=== PATIENT | female | born 1980 | race Caucasian/White ===

== ENCOUNTER 2017-02-05 19:35 | Emergency (ER) | payer OTHER ==
[~2017-02-05] VITALS: Ht 170.2 cm; Wt 70.0 kg
[2017-02-05 19:40] VITALS: BP 141/84; PULSE 98; RESP 18; TEMP 98.4; O2SAT 100
[2017-02-05] MEDS ORDERED: SODIUM CHLOR 0.9% 1000 ML INJ 1,000 ML IV SCH (23:50)
[2017-02-06] MEDS ORDERED: KETOROLAC TROMETHAMINE 30 MG/ML (IVP) VIAL IVP ONE
[2017-02-06] MEDS ORDERED: ONDANSETRON HCL 4 MG/2 ML VIAL IVP ONE
[2017-02-06] MEDS ORDERED: SODIUM CHLORIDE 0.9% FLUSH 10 ML FLUSH IV FLUSH PRN
[2017-02-06 00:09] LABS: BASOPHIL # 0.1 TH/MM3 (0-0.2); BASOPHIL % 0.7 % (0.0-2.0); EOSINOPHIL # 0.2 TH/MM3 (0-0.4); EOSINOPHIL % 2.6 % (0.0-4.0); HEMO FLAGS DIFF FINAL; LYMPH % 26.7 % (9.0-44.0); LYMPHOCYTE # 1.9 TH/MM3 (1.0-4.8); MEAN CELL VOLUME 91.3 FL (80.0-100.0); MEAN CORPUSCULAR HEMOGLOBIN 32.3 PG (27.0-34.0); MEAN CORPUSCULAR HGB CONC 35.3 % (32.0-36.0); MONO % 13.9 % (0.0-8.0); NEUT % 56.1 % (16.0-70.0); PLATELET COUNT 205 TH/MM3 (150-450); RED BLOOD COUNT 4.38 MIL/MM3 (4.00-5.30); RED CELL DISTRIBUTION WIDTH 12.3 % (11.6-17.2); WHITE BLOOD COUNT 7.1 TH/MM3 (4.0-11.0)
[2017-02-06 00:15] LABS: BACTERIA, URINE RARE /hpf; BLOOD, URINE NEG (NEG); GLUCOSE,URINE NEG (NEG); KETONE, URINE NEG (NEG); NITRITE,URINE NEG (NEG); PH, URINE 6.5 (5.0-8.5); SQUAMOUS EPITHELIAL CELL URINE 2 /hpf (0-5); URINE COLOR YELLOW (YELLW/STRAW)
[2017-02-06 00:16] LABS: COMMENT (UR) CULT NOT INDICATED; CULTURE IF INDICATED CULT NOT INDICATED
--- NOTE | 2017-02-06 00:18 | PD ---
HPI Chief Complaint: Abdominal Pain Time Seen by Provider: 23:42 Travel History International Travel<30 days: No Contact w/Intl Traveler<30days: No Traveled to known affect area: No History of Present Illness HPI Patient is a 36-year-old female sent having intermittent right lower quadrant abdominal pain for the past few days. Patient states that she's also been having some intense nausea and vomiting. States she had her tubes tied some time ago. States she has a history of drug addiction and is currently in drug court cannot have any narcotics. Denies any diarrhea. Denies any vaginal bleeding vaginal discharge. PFS Past Medical History Neurologic: Yes (SYNCOPE) Tetanus Vaccination: < 5 Years Influenza Vaccination: Yes ?: Not LMP: 01/16/17 Tubal Ligation: Yes Social History Alcohol Use: No Tobacco Use: No Substance Use: No Allergies-Medications (Allergen,Severity, Reaction): Coded Allergies: Contrast Media (Verified Adverse Reaction, Severe, 02/05/17) Iodine (Verified Adverse Reaction, Severe, Hives, 02/05/17) Reported Meds & Prescriptions Reported Meds & Active Scripts Active Flagyl (Metronidazole) 500 Mg Tab 500 Mg PO BID 7 Days Review of Systems Except as stated in HPI: all other systems reviewed are Neg Physical Exam Narrative GENERAL: WD/WN appears in mild discomfort. SKIN: Warm and dry. HEAD: Atraumatic. Normocephalic. EYES: Pupils equal and round. No scleral icterus. No injection or drainage. ENT: No nasal bleeding or discharge. Mucous membranes pink and moist. NECK: Trachea midline. No JVD. CARDIOVASCULAR: Regular rate and rhythm. RESPIRATORY: No accessory muscle use. Clear to auscultation. Breath sounds equal bilaterally. GASTROINTESTINAL: Abdomen soft, minimally tender in the right lower quadrant. Psoas sign weakly positive, obturator sign negative. No rebound tenderness. GENITOURINARY: No CMT, no BMT, no adenexal mass felt. No adenexal tenderness. No bleeding, scant discharge. MUSCULOSKELETAL: Extremities without clubbing, cyanosis, or edema. No obvious deformities. NEUROLOGICAL: Awake and alert. No obvious cranial nerve deficits. Motor grossly within normal limits. Five out of 5 muscle strength in the arms and legs. Normal speech. PSYCHIATRIC: Appropriate mood and affect; insight and judgment normal. Data Data Last Documented VS Vital Signs Date Time Temp Pulse Resp B/P Pulse Ox O2 Delivery O2 Flow Rate FiO2 7/6/17 01:04 99 02/05/17 19:40 98.4 98 18 141/84 Room Air Orders Urinalysis - C+S If Indicated (02/05/17 23:36) Ed Urine Pregnancytest Poc (02/05/17 23:36) Complete Blood Count With Diff (02/05/17 23:50) Comprehensive Metabolic Panel (02/05/17 23:50) Iv Access Insert/Monitor (02/05/17 23:50) Ecg Monitoring (02/05/17 23:50) Oximetry (02/05/17 23:50) Ondansetron Inj (Zofran Inj) (02/06/17 00:00) Sodium Chlor 0.9% 1000 Ml Inj (Ns 1000 M (02/05/17 23:50) Sodium Chloride 0.9% Flush (Ns Flush) (02/06/17 00:00) Ketorolac Inj (Toradol Inj) (02/06/17 00:00) Ct Abd/Pel W/O Iv Contrast (02/05/17 ) Us Pelvis Comp W Dop Transvag (02/06/17 ) Wet Prep Profile (02/06/17 00:18) Gc And Chlamydia Pcr (02/06/17 00:18) Labs Laboratory Tests Test 02/05/17 02/05/17 02/06/17 23:50 23:59 02:55 Urine Color YELLOW Urine Turbidity CLEAR Urine pH 6.5 Urine Specific [place] 1.017 Urine Protein NEG mg/dL Urine Glucose (UA) NEG mg/dL Urine Ketones NEG mg/dL Urine Occult Blood NEG Urine Nitrite NEG Urine Bilirubin NEG Urine Urobilinogen LESS THAN 2.0 MG/DL Urine Leukocyte Esterase SMALL Urine RBC 1 /hpf Urine WBC 1 /hpf Urine Squamous Epithelial 2 /hpf Cells Urine Amorphous Sediment RARE Urine Bacteria RARE /hpf Microscopic Urinalysis Comment CULT NOT INDICATED White Blood Count 7.1 TH/MM3 Red Blood Count 4.38 MIL/MM3 Hemoglobin 14.1 GM/DL Hematocrit 40.0 % Mean Corpuscular Volume 91.3 FL Mean Corpuscular Hemoglobin 32.3 PG Mean Corpuscular Hemoglobin 35.3 % Concent Red Cell Distribution Width 12.3 % Platelet Count 205 TH/MM3 Mean Platelet Volume 10.0 FL Neutrophils (%) (Auto) 56.1 % Lymphocytes (%) (Auto) 26.7 % Monocytes (%) (Auto) 13.9 % Eosinophils (%) (Auto) 2.6 % Basophils (%) (Auto) 0.7 % Neutrophils # (Auto) 4.0 TH/MM3 Lymphocytes # (Auto) 1.9 TH/MM3 Monocytes # (Auto) 1.0 TH/MM3 Eosinophils # (Auto) 0.2 TH/MM3 Basophils # (Auto) 0.1 TH/MM3 CBC Comment DIFF FINAL Differential Comment Sodium Level 139 MEQ/L Potassium Level 3.8 MEQ/L Chloride Level 106 MEQ/L Carbon Dioxide Level 25.3 MEQ/L Anion Gap 8 MEQ/L Blood Urea Nitrogen 11 MG/DL Creatinine 0.71 MG/DL Estimat Glomerular Filtration 94 ML/MIN Rate Random Glucose 101 MG/DL Calcium Level 9.2 MG/DL Total Bilirubin 0.4 MG/DL Aspartate Amino Transf 38 U/L (AST/SGOT) Alanine Aminotransferase 87 U/L (ALT/SGPT) Alkaline Phosphatase 58 U/L Total Protein 7.2 GM/DL Albumin 3.9 GM/DL Clue Cells (Wet Prep) PRESENT Vaginal Trichomonas (Wet Prep) NONE SEEN Vaginal Yeast (Wet Prep) NONE SEEN Chlamydia trachomatis DNA NOT DETECTED (PCR) Neisseria gonorrhoeae DNA NOT DETECTED (PCR) MDM Medical Decision Making Medical Screen Exam Complete: Yes Emergency Medical Condition: Yes Differential Diagnosis Appendicitis, torsion, STD, BV, CV, . Narrative Course Patient roomed in ED, given toradol and feeling better. Preg test negative, CT negative for acute pathology does show a right ovarian mass. Pelvic US shows no evidence of torsion: Last 24 hours Impressions Abdomen/Pelvis/Transvag US 02/06/17 0000 Signed Impressions: Service Date/Time: February 02:14 - CONCLUSION: 1. Hypoechoic structure in the right ovary measuring 2.3 cm. Followup study in 4 weeks recommended for stability. 2. Pelvic free fluid. Laci Decker MD Abdomen/Pelvis CT 02/05/17 0000 Signed Impressions: Service Date/Time: February 00:47 - CONCLUSION: 1. Soft tissue density in the right adnexa measuring 3.5 cm could be related to ovary versus mass. Pelvic sonogram recommended. 2. Small calcified gallstone. 3. Normal appendix. Laci Decker MD Discussed the findings above with the patient and interim follow up needed. Her pain has returned but she is sleeping comfortably. I offered additional pain medications and she declined. Given her sleeping and comfortable appearance on re-visit i highly doubt emergent pathology. DIscussed need for follow up wit PCP or [facility] and return to ED criteria. Diagnosis Primary Impression: Abdominal pain Additional Impressions: Ovarian mass, right BV (bacterial vaginosis) Referrals: [facility] Departure Forms: Tests/Procedures, Work Release Enter return to work date: Feb 07, 2017 Additional Instructions: Follow-up with regular physician or the [facility]. Med/Other Pt SpecificInfo: Prescription(s) given Scripts Metronidazole (Flagyl)500 Mg Vra475 Mg PO BID 7 Days Ref 0 Prov:Sujit Gallegos MD 02/06/17 Disposition: 01 DISCHARGE HOME Condition: Stable Sujit Gallegos MD Feb 06, 2017 00:18
[2017-02-06 00:33] LABS: ANION GAP 8 MEQ/L (5-15); AST (GOT) 38 U/L (15-37); BICARBONATE 25.3 MEQ/L (21.0-32.0); BLOOD UREA NITROGEN 11 MG/DL (7-18); CHLORIDE 106 MEQ/L (98-107); GLOMERULAR FILTRATION RATE 94 ML/MIN (>89); POTASSIUM 3.8 MEQ/L (3.5-5.1); SODIUM (NA) 139 MEQ/L (136-145)
[2017-02-06 00:34] LABS: ALT (GPT) 87 U/L (10-53)
[2017-02-06 00:36] LABS: ALKALINE PHOSPHATASE 58 U/L (45-117); TOTAL BILIRUBIN ADULT 0.4 MG/DL (0.2-1.0)
[2017-02-06 01:04] VITALS: O2SAT 99
--- NOTE | 2017-02-06 01:10 | RADRPT ---
EXAM DATE/TIME: 02/06/2017 00:47 [facility] COMPARISON: No previous studies available for comparison. INDICATIONS : Right lower qaudrant pain. ORAL CONTRAST: No oral contrast ingested. RADIATION DOSE: 9.96 CTDIvol (mGy) MEDICAL HISTORY : None SURGICAL HISTORY : Tubal ligation. ENCOUNTER: Initial ACUITY: 1 day PAIN SCALE: 10/10 LOCATION: Right lower quadrant TECHNIQUE: Volumetric scanning of the abdomen and pelvis was performed. Using automated exposure control and ad justment of the mA and/or kV according to patient size, radiation dose was kept as low as reasonably achievable to obtain optimal diagnostic quality images. DICOM format image data is available electro nically for review and comparison. FINDINGS: LOWER LUNGS: The visualized lower lungs are clear. LIVER: Homogeneous density without lesion. There is no dilation of the biliary tree. Gallbladder is contrac ольга and contains a single small calcified gallstone. SPLEEN: Normal size without lesion. PANCREAS: Within normal limits. KIDNEYS: Normal in size and shape. There is no mass, stone, or hydronephrosis. ADRENAL GLANDS: Within normal limits. VASCULAR: There is no aortic aneurysm. BOWEL/MESENTERY: The stomach, small bowel, and colon demonstrate no acute abnormality. There is no free intraperitone al air or fluid. Normal appendix. ABDOMINAL WALL: Within normal limits. RETROPERITONEUM: There is no lymphadenopathy. BLADDER: No wall thickening or mass. REPRODUCTIVE: Soft tissue density in the right adnexa measures 3.5 cm. INGUINAL: There is no lymphadenopathy or hernia. MUSCULOSKELETAL: Within normal limits for patient age. CONCLUSION: 1. Soft tissue density in the right adnexa measuring 3.5 cm could be related to ovary versus mass. Pe lvic sonogram recommended. 2. Small calcified gallstone. 3. Normal appendix. Laci Decker MD on February 06, 2017 at 1:05 Board Certified Radiologist. This report was verified electronically.
--- NOTE | 2017-02-06 03:24 | RADRPT ---
EXAM DATE/TIME: 02/06/2017 02:14 [facility] COMPARISON: No previous studies available for comparison. INDICATIONS : Pelvic pain. MEDICAL HISTORY : Syncope. SURGICAL HISTORY : Tubal ligation. ENCOUNTER: Initial ACUITY: 1 day PAIN SCORE: 8/10 LOCATION: Bilateral pelvis MEASUREMENTS: UTERUS: 7.8 x 4.8 x 4.3 cm ENDOMETRIAL STRIPE: 10 mm RIGHT OVARY: 4.3 x 3.3 x 2.8 cm LEFT OVARY: 3.0 x 2.4 x 2.2 cm FINDINGS: UTERUS: The myometrium has homogeneous echotexture without mass. RIGHT OVARY: Hypoechoic structure seen in the right ovary measuring 2.1 x 2.3 x 1.8 cm. Minimal flow. Normal flow. LEFT OVARY: Ovary contains no mass or significant cystic lesion. Normal flow. MISCELLANEOUS: There is free fluid. CONCLUSION: 1. Hypoechoic structure in the right ovary measuring 2.3 cm. Followup study in 4 weeks recommended fo r stability. 2. Pelvic free fluid. Laci Decker MD on February 06, 2017 at 3:18 Board Certified Radiologist. This report was verified electronically.
[2017-02-06] MEDS ORDERED: METR-1 PO (04:18)
[2017-02-06 05:36] LABS: CHLAMYDIA PCR NOT DETECTED (NOT DETECT); NEISSERIA PCR NOT DETECTED (NOT DETECT)
== END 2017-02-06 05:15 | disposition home or self-care (01) ==
LOC: NEPE 19:35
DX: R10.31 Right lower quadrant pain (principal); N83.8 Other noninflammatory disorders of ovary, fallopian tube and broad ligament; N76.0 Acute vaginitis; R11.2 Nausea with vomiting, unspecified; Z86.69 Personal history of other diseases of the nervous system and sense organs
CPT/HCPCS: 74176; 76830; 76856; 80053; 81001; 84703; 85025; 87210; 87491; 87591; 93975; 96374; 96375; 99285; J1885; J2405; J7030

== ENCOUNTER 2017-02-22 10:04 | Emergency (ER) | payer OTHER ==
[~2017-02-22] VITALS: Ht 170.2 cm; Wt 72.0 kg
[~2017-02-22 10:04] MED LIST: METR-1 PO
[2017-02-22 10:11] VITALS: BP 118/64; PULSE 93; RESP 16; TEMP 98.1; O2SAT 99
[2017-02-22] MEDS ORDERED: KETOROLAC TROMETHAMINE 60 MG/2 ML (IM) VIAL IM ONE (10:45)
--- NOTE | 2017-02-22 10:49 | PD ---
HPI Chief Complaint: Musculoskeletal Complaint Time Seen by Provider: 10:38 Travel History International Travel<30 days: No Contact w/Intl Traveler<30days: No Traveled to known affect area: No History of Present Illness HPI Patient is a 36-year-old female who comes in complaining of left shoulder pain and a cough. She says she has been coughing for the past 2 weeks. She was seen in urgent care and was given a prescription for amoxicillin as well as prednisone. She says she just finished the medications yesterday, but she is still coughing. She denies fever or chills. She says she has had the left shoulder pain for the past 2 days, she says she woke up with the pain. She works making pizzas. She denies any direct injury to her shoulder. She says the pain comes on when she tries to raise her arm above her head or move the arm too much. PFSH Past Medical History Diminished Hearing: No Neurologic: Yes (SYNCOPE) Tetanus Vaccination: Unknown ?: Not LMP: 02/15/17 Tubal Ligation: Yes Social History Alcohol Use: No Tobacco Use: No Substance Use: No Allergies-Medications (Allergen,Severity, Reaction): Coded Allergies: Contrast Media (Verified Adverse Reaction, Severe, 02/22/17) Iodine (Verified Adverse Reaction, Severe, Hives, 02/22/17) Reported Meds & Prescriptions Reported Meds & Active Scripts Active No Active Prescriptions or Reported Medications Review of Systems General / Constitutional: No: Fever, Chills HENT: No: Headaches, Lightheadedness Cardiovascular: No: Chest Pain or Discomfort Respiratory: Positive: Cough, No: Shortness of Breath Gastrointestinal: No: Nausea, Vomiting Musculoskeletal: Positive: Pain, No: Edema Skin: No Rash, No Change in Pigmentation Neurologic: No: Weakness, Sensory Disturbance Physical Exam Narrative GENERAL: Awake and alert, in no acute distress. SKIN: Focused skin assessment warm/dry. No rashes or signs of infection. HEAD: Atraumatic. Normocephalic. EYES: Pupils equal and round. No scleral icterus. ENT: Mucous membranes pink and moist. CARDIOVASCULAR: Regular rate and rhythm. No murmur appreciated. RESPIRATORY: No accessory muscle use. Clear to auscultation. Breath sounds equal bilaterally. MUSCULOSKELETAL: No obvious deformities. No clubbing. No cyanosis. No edema. Tender to palpation at the biceps insertion on the humerus. Pain with abduction of the left arm. No joint erythema or warmth. No bony tenderness. Radial pulse intact. NEUROLOGICAL: Awake and alert. No obvious cranial nerve deficits. Motor grossly within normal limits. Normal speech. Data Data Last Documented VS Vital Signs Date Time Temp Pulse Resp B/P Pulse Ox O2 Delivery O2 Flow Rate FiO2 02/22/17 10:11 98.1 93 16 118/64 99 Orders Ketorolac Inj (Toradol Inj) (02/22/17 10:45) Chest, Pa & Lat (02/22/17 ) MDM Medical Decision Making Medical Screen Exam Complete: Yes Emergency Medical Condition: Yes Medical Record Reviewed: Yes Differential Diagnosis Shoulder sprain versus tendinitis versus bronchitis versus URI Narrative Course Patient is a 36-year-old female who comes in complaining of left shoulder pain as well as a cough. Exam shows pain with movement of the left arm. Patient given Toradol for pain. Chest x-ray obtained, shows no acute abnormalities. Patient asking for a note for work. Advised to take ibuprofen as needed for pain. Advised follow-up with her doctor. Advised to return to the ED as needed for any worsening symptoms. Diagnosis Primary Impression: Muscle strain, upper arm Qualified Code: S46.912A - Muscle strain, upper arm, left, initial encounter Patient Instructions: General Instructions, Musculoskeletal Pain (ED) Additional Instructions: Follow up with your doctor. Take Ibuprofen as needed for pain. Return to the ED as needed for any worsening symptoms. Scripts No Active Prescriptions or Reported Meds Disposition: 01 DISCHARGE HOME Condition: Stable Vanessa Morse MD Feb 22, 2017 10:49
--- NOTE | 2017-02-22 11:05 | RADRPT ---
EXAM DATE/TIME: 02/22/2017 10:51 [facility] COMPARISON: CT ABDOMEN & PELVIS W/O CONTRAST, February 06, 2017, 0:47. INDICATIONS : Cough, mid to left upper chest pain, left shoulder area and left upper arm pain MEDICAL HISTORY : None. SURGICAL HISTORY : None. ENCOUNTER: Initial ACUITY: 2 weeks PAIN SCORE: 5/10 LOCATION: Left upper chest FINDINGS: PA and lateral views of the chest demonstrate the lungs to be symmetrically aerated without evidence of mass, infiltrate or effusion. The cardiomediastinal contours are unremarkable. Osseous structure s are intact. CONCLUSION: 1. No acute cardiopulmonary disease. Bubba Ewing MD on February 22, 2017 at 11:03 Board Certified Radiologist. This report was verified electronically.
== END 2017-02-22 11:15 | disposition home or self-care (01) ==
LOC: PHED 10:04
DX: S46.912A Strain of unspecified muscle, fascia and tendon at shoulder and upper arm level, left arm, initial encounter (principal); R05 Cough; R07.89 Other chest pain
CPT/HCPCS: 71020; 96372; 99284; J1885

== ENCOUNTER 2017-04-03 19:23 | Emergency (ER) | payer OTHER ==
[2017-04-03 19:26] VITALS: BP 128/72; PULSE 85; RESP 16; TEMP 98.7
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
[2017-04-03] MEDS ORDERED: IBUP-232 PO (20:34)
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
== END 2017-04-03 21:35 | disposition home or self-care (01) ==
LOC: PHEFT 19:23
DX: S16.1XXA Strain of muscle, fascia and tendon at neck level, initial encounter (principal); V89.2XXA Person injured in unspecified motor-vehicle accident, traffic, initial encounter
CPT/HCPCS: 72125; 99284

== ENCOUNTER 2017-05-29 22:43 | Emergency (ER) | payer OTHER ==
[~2017-05-29] VITALS: Ht 170.2 cm; Wt 68.0 kg
[~2017-05-29 22:43] MED LIST changes: +IBUP-232 PO; -METR-1 PO
[2017-05-29 22:44] VITALS: BP 138/84; PULSE 91; RESP 16; TEMP 98.1; O2SAT 100
[2017-05-29] MEDS ORDERED: SODIUM CHLOR 0.9% 1000 ML INJ 1,000 ML IV SCH ×2 (23:32)
[2017-05-29] MEDS ORDERED: SODIUM CHLORIDE 0.9% FLUSH 10 ML FLUSH IV FLUSH PRN ×2 (23:45)
[2017-05-29] MEDS ORDERED: ONDANSETRON HCL 4 MG/2 ML VIAL IVP ONE ×2 (23:45)
[2017-05-30 00:11] LABS: BASOPHIL % 0.3 % (0.0-2.0); EOSINOPHIL # 0.2 TH/MM3 (0-0.4); EOSINOPHIL % 1.8 % (0.0-4.0); HEMATOCRIT 42.5 % (35.0-46.0); HEMOGLOBIN 14.9 GM/DL (11.6-15.3); LYMPH % 22.5 % (9.0-44.0); MEAN CELL VOLUME 92.3 FL (80.0-100.0); MEAN CORPUSCULAR HEMOGLOBIN 32.4 PG (27.0-34.0); MEAN CORPUSCULAR HGB CONC 35.1 % (32.0-36.0); MEAN PLATELET VOLUME 9.9 FL (7.0-11.0); MONO % 6.7 % (0.0-8.0); MONOCYTE # 0.9 TH/MM3 (0-0.9); NEUT % 68.7 % (16.0-70.0); PLATELET COUNT 244 TH/MM3 (150-450); RED CELL DISTRIBUTION WIDTH 12.3 % (11.6-17.2); WHITE BLOOD COUNT 13.2 TH/MM3 (4.0-11.0)
[2017-05-30 00:27] LABS: BACTERIA, URINE RARE /hpf; BILIRUBIN, URINE NEG (NEG); BLOOD, URINE NEG (NEG); GLUCOSE,URINE NEG (NEG); KETONE, URINE NEG (NEG); MUCUS URINE FEW /lpf (OCC); NITRITE,URINE NEG (NEG); SQUAMOUS EPITHELIAL CELL URINE 13 /hpf (0-5); URINE COLOR YELLOW (YELLW/STRAW); URINE LEUKOCYTE ESTERASE MOD (NEG)
[2017-05-30 00:39] LABS: ALBUMIN 4.1 GM/DL (3.4-5.0); AST (GOT) 15 U/L (15-37); BICARBONATE 26.5 MEQ/L (21.0-32.0); BLOOD UREA NITROGEN 13 MG/DL (7-18); CALCIUM 9.7 MG/DL (8.5-10.1); CHLORIDE 105 MEQ/L (98-107); GLOMERULAR FILTRATION RATE 96 ML/MIN (>89); GLUCOSE,RANDOM 87 MG/DL (74-106); LIPASE 117 U/L (73-393); SODIUM (NA) 138 MEQ/L (136-145)
[2017-05-30 00:42] LABS: ALKALINE PHOSPHATASE 58 U/L (45-117); ALT (GPT) 49 U/L (10-53); TOTAL BILIRUBIN ADULT 0.3 MG/DL (0.2-1.0); TOTAL PROTEIN 7.5 GM/DL (6.4-8.2)
--- NOTE | 2017-05-30 01:31 | RADRPT ---
EXAM DATE/TIME: 05/30/2017 01:14 [facility] COMPARISON: CT ABDOMEN & PELVIS W/O CONTRAST, February 06, 2017, 0:47. INDICATIONS : Abdominal pain with nausea. ORAL CONTRAST: No oral contrast ingested. RADIATION DOSE: 6.77 CTDIvol (mGy) MEDICAL HISTORY : None SURGICAL HISTORY : Tubal ligation. ENCOUNTER: Initial ACUITY: 1 day PAIN SCALE: 7/10 LOCATION: abdomen TECHNIQUE: Volumetric scanning of the abdomen and pelvis was performed. Using automated exposure control and ad justment of the mA and/or kV according to patient size, radiation dose was kept as low as reasonably achievable to obtain optimal diagnostic quality images. DICOM format image data is available electro nically for review and comparison. FINDINGS: LOWER LUNGS: The visualized lower lungs are clear. LIVER: Homogeneous density without lesion. There is no dilation of the biliary tree. Subcentimeter gallston e again noted. SPLEEN: Normal size without lesion. PANCREAS: Within normal limits. KIDNEYS: Normal in size and shape. There is no mass, stone, or hydronephrosis. ADRENAL GLANDS: Within normal limits. VASCULAR: There is no aortic aneurysm. BOWEL/MESENTERY: The stomach, small bowel, and colon demonstrate no acute abnormality. There is no free intraperitone al air or fluid. Normal appendix. ABDOMINAL WALL: Within normal limits. RETROPERITONEUM: There is no lymphadenopathy. BLADDER: No wall thickening or mass. REPRODUCTIVE: Within normal limits. INGUINAL: There is no lymphadenopathy or hernia. MUSCULOSKELETAL: No acute bony abnormality demonstrated. Partial sacralization again noted of L5 on the left. CONCLUSION: No acute abnormality demonstrated. Benji Ricardo MD on May 30, 2017 at 1:26 Board Certified Radiologist. This report was verified electronically.
[2017-05-30] MEDS ORDERED: ZOFR4TAB3 SL ×2 (01:38)
[2017-05-30] MEDS ORDERED: ZANT150T2 PO ×2 (01:38)
--- NOTE | 2017-05-30 01:38 | PD ---
HPI Chief Complaint: Abdominal Pain Time Seen by Provider: 23:27 Travel History International Travel<30 days: No Contact w/Intl Traveler<30days: No Traveled to known affect area: No History of Present Illness HPI This is a 36-year-old female who presents to the emergency department with 2 weeks of abdominal discomfort described as cramping, worse in the right abdomen , associated with subjective fevers and chills, nausea, decreased appetite and mucoid stool. She's never had symptoms like this before. She has a history of a bilateral tubal ligation but otherwise denies any abdominal surgeries. She has no known family history of inflammatory bowel disease. She does have a history of opiate dependence but has been clean for 10 months and she says she' s never used IV drugs. She denies any vaginal discharge and said she is been with one partner in the past 6 months. PFSH Past Medical History Diminished Hearing: No Neurologic: Yes (SYNCOPE) Immunizations Current: Yes Tetanus Vaccination: < 5 Years Influenza Vaccination: Yes ?: Not Tubal Ligation: Yes Social History Alcohol Use: No Tobacco Use: Yes (2 CIGS A DAY) Substance Use: Yes (RECOVERY) Allergies-Medications (Allergen,Severity, Reaction): Coded Allergies: diatrizoate meglumine (Unverified Adverse Reaction, Severe, 05/29/17) gadobenic acid (Unverified Adverse Reaction, Severe, 05/29/17) gadodiamide (Unverified Adverse Reaction, Severe, 05/29/17) gadoteridol (Unverified Adverse Reaction, Severe, 05/29/17) iodine (Unverified Adverse Reaction, Severe, Hives, 05/29/17) iodixanol (Unverified Adverse Reaction, Severe, 05/29/17) iohexol (Unverified Adverse Reaction, Severe, 05/29/17) potassium iodide (Unverified Adverse Reaction, Severe, Hives, 05/29/17) povidone-iodine (Unverified Adverse Reaction, Severe, Hives, 05/29/17) sodium iodide (Unverified Adverse Reaction, Severe, Hives, 05/29/17) sodium iodide (Unverified Adverse Reaction, Severe, Hives, 05/29/17) Reported Meds & Prescriptions Reported Meds & Active Scripts Active No Active Prescriptions or Reported Medications Review of Systems Except as stated in HPI: all other systems reviewed are Neg Physical Exam Narrative GENERAL:Well appearing, no acute distress SKIN: Focused skin assessment warm and dry. HEAD: Atraumatic. Normocephalic. EYES: Pupils equal and round. No injection or drainage. ENT: Moist mucous membranes NECK: Trachea midline. CARDIOVASCULAR: Regular rate and rhythm. No murmur appreciated. RESPIRATORY: Clear to auscultation. Breath sounds equal bilaterally. GASTROINTESTINAL: Abdomen soft, tender to palpation in the epigastrium and right lower quadrant with no rebound or guarding. MUSCULOSKELETAL: No obvious deformities. NEUROLOGICAL: Awake and alert. No obvious cranial nerve deficits. Moving all extremities. PSYCHIATRIC: Appropriate mood and affect; insight and judgment normal. Data Data Last Documented VS Vital Signs Date Time Temp Pulse Resp B/P (MAP) Pulse Ox O2 Delivery O2 Flow Rate FiO2 05/29/17 22:44 98.1 91 16 138/84 (102) 100 Room Air Orders Orders Complete Blood Count With Diff (05/29/17 23:32) Comprehensive Metabolic Panel (05/29/17 23:32) Lipase (05/29/17 23:32) Urinalysis - C+S If Indicated (05/29/17 23:32) Iv Access Insert/Monitor (05/29/17 23:32) Ecg Monitoring (05/29/17 23:32) Oximetry (05/29/17 23:32) Ondansetron Inj (Zofran Inj) (05/29/17 23:45) Sodium Chlor 0.9% 1000 Ml Inj (Ns 1000 M (05/29/17 23:32) Sodium Chloride 0.9% Flush (Ns Flush) (05/29/17 23:45) Ct Abd/Pel W/O Iv Contrast (05/30/17 ) Labs Laboratory Tests Test 05/29/17 23:40 White Blood Count 13.2 TH/MM3 Red Blood Count 4.60 MIL/MM3 Hemoglobin 14.9 GM/DL Hematocrit 42.5 % Mean Corpuscular Volume 92.3 FL Mean Corpuscular Hemoglobin 32.4 PG Mean Corpuscular Hemoglobin Concent 35.1 % Red Cell Distribution Width 12.3 % Platelet Count 244 TH/MM3 Mean Platelet Volume 9.9 FL Neutrophils (%) (Auto) 68.7 % Lymphocytes (%) (Auto) 22.5 % Monocytes (%) (Auto) 6.7 % Eosinophils (%) (Auto) 1.8 % Basophils (%) (Auto) 0.3 % Neutrophils # (Auto) 9.0 TH/MM3 Lymphocytes # (Auto) 3.0 TH/MM3 Monocytes # (Auto) 0.9 TH/MM3 Eosinophils # (Auto) 0.2 TH/MM3 Basophils # (Auto) 0.0 TH/MM3 CBC Comment DIFF FINAL Differential Comment Urine Color YELLOW Urine Turbidity HAZY Urine pH 6.0 Urine Specific [place] 1.024 Urine Protein NEG mg/dL Urine Glucose (UA) NEG mg/dL Urine Ketones NEG mg/dL Urine Occult Blood NEG Urine Nitrite NEG Urine Bilirubin NEG Urine Urobilinogen LESS THAN 2.0 MG/DL Urine Leukocyte Esterase MOD Urine RBC 3 /hpf Urine WBC 3 /hpf Urine Squamous Epithelial Cells 13 /hpf Urine Bacteria RARE /hpf Urine Mucus FEW /lpf Microscopic Urinalysis Comment CULT NOT INDICATED Blood Urea Nitrogen 13 MG/DL Creatinine 0.70 MG/DL Random Glucose 87 MG/DL Total Protein 7.5 GM/DL Albumin 4.1 GM/DL Calcium Level 9.7 MG/DL Alkaline Phosphatase 58 U/L Aspartate Amino Transf (AST/SGOT) 15 U/L Alanine Aminotransferase (ALT/SGPT) 49 U/L Total Bilirubin 0.3 MG/DL Sodium Level 138 MEQ/L Potassium Level 3.7 MEQ/L Chloride Level 105 MEQ/L Carbon Dioxide Level 26.5 MEQ/L Anion Gap 7 MEQ/L Estimat Glomerular Filtration Rate 96 ML/MIN Lipase 117 U/L MDM Medical Decision Making Medical Screen Exam Complete: Yes Emergency Medical Condition: Yes Interpretation(s) Afebrile, no tachycardia, normotensive Leukocytosis Electrolytes are reassuring Lipase is normal Urinalysis is reassuring CT abdomen and pelvis: No acute process Differential Diagnosis Appendicitis, colitis, gastroenteritis, gastritis, urinary tract infection, pelvic inflammatory disease Narrative Course This is a 36-year-old female who presents to the emergency department with decreased appetite, loose stools and right sided abdominal pain. Labs were obtained which demonstrated a mild leukocytosis. CT abdomen and pelvis is reassuring. I suspect the patient has gastroenteritis. She denies any vaginal discharge and has no risk factors for pelvic inflammatory disease. I think she is safe to be discharged with symptomatic management. Diagnosis Primary Impression: Gastroenteritis Patient Instructions: General Instructions Additional Instructions: If you develop lightheadedness, dizziness, persistent vomiting, inability to eat , or severe abdominal pain return to the emergency department. Followup with your primary care physician in 2-3 days if your symptoms have not resolved. Wash your hands agressively after using the restroom as to not spread your illness to others. Do not return to work until your symptoms have resolved. Take Zofran as needed for nausea. Scripts Ranitidine (Zantac) 150 Mg Tab 150 MG PO BID for Reduce Stomach Acid, #60 TAB 0 Refills Prov: Meliza Gould MD 05/30/17 Ondansetron Odt (Zofran Odt) 4 Mg Tab 4 MG SL Q6HR Y for Nausea/Vomiting, #15 TAB 0 Refills Prov: Meliza Gould MD 05/30/17 Disposition: 01 DISCHARGE HOME Condition: Stable Meliza Gould MD May 30, 2017 01:38
[2017-05-30 01:49] VITALS: BP 101/58
== END 2017-05-30 01:53 | disposition home or self-care (01) ==
LOC: NEPE 22:43
DX: K52.9 Noninfective gastroenteritis and colitis, unspecified (principal); F17.210 Nicotine dependence, cigarettes, uncomplicated
CPT/HCPCS: 74176; 80053; 81001; 83690; 85025; 96361; 96374; 99285; J2405; J7030

== ENCOUNTER 2017-11-03 00:38 | Emergency (ER) | payer OTHER ==
[~2017-11-03] VITALS: Ht 170.2 cm; Wt 75.0 kg
[~2017-11-03 00:38] MED LIST changes: -IBUP-232 PO; +ZANT150T2 PO; +ZOFR4TAB3 SL
[2017-11-03 00:45] VITALS: BP 138/79; PULSE 82; RESP 18; TEMP 97.7; O2SAT 98
--- NOTE | 2017-11-03 01:44 | RADRPT ---
EXAM DATE/TIME: 11/03/2017 01:29 [facility] COMPARISON: No previous studies available for comparison. INDICATIONS : Fall at work landed on left arm. MEDICAL HISTORY : None. SURGICAL HISTORY : None. ENCOUNTER: Initial ACUITY: 1 day PAIN SCORE: 2/10 LOCATION: Left hand FINDINGS: Two view examination of the left hand demonstrates no soft tissue swelling, dislocation, or fracture. The joint spaces are maintained. Bony mineralization is normal. CONCLUSION: Unremarkable limited examination of the left hand. Benji Chatman MD on November 03, 2017 at 1:41 Board Certified Radiologist. This report was verified electronically.
--- NOTE | 2017-11-03 01:45 | RADRPT ---
EXAM DATE/TIME: 11/03/2017 01:30 [facility] COMPARISON: No previous studies available for comparison. INDICATIONS : Fall at work pain in left arm. MEDICAL HISTORY : None. SURGICAL HISTORY : None. ENCOUNTER: Initial ACUITY: 1 day PAIN SCORE: 5/10 LOCATION: Left forearm FINDINGS: Two view examination of the left forearm demonstrates no evidence of fracture or dislocation. Bony m ineralization is normal. The soft tissue structures are intact. CONCLUSION: Unremarkable examination of the left forearm. Benji Chatman MD on November 03, 2017 at 1:42 Board Certified Radiologist. This report was verified electronically.
--- NOTE | 2017-11-03 01:50 | RADRPT ---
EXAM DATE/TIME: 11/03/2017 01:33 [facility] COMPARISON: CHEST PA & LAT, February 22, 2017, 10:51. INDICATIONS : Chest pain to left side, Fall. MEDICAL HISTORY : None. SURGICAL HISTORY : None. ENCOUNTER: Initial ACUITY: 1 day PAIN SCORE: 3/10 LOCATION: Left chest FINDINGS: PA and lateral views of the chest demonstrate the lungs to be symmetrically aerated without evidence of mass, infiltrate or effusion. The cardiomediastinal contours are unremarkable. Osseous structure s are intact. CONCLUSION: No acute disease. Benji Chatman MD on November 03, 2017 at 1:45 Board Certified Radiologist. This report was verified electronically.
[2017-11-03] MEDS ORDERED: IBUPROFEN 400 MG TAB PO ONE (03:15)
[2017-11-03] MEDS ORDERED: CYCL5TAB PO (03:58)
[2017-11-03] MEDS ORDERED: IBUP1TAB5 PO (03:58)
--- NOTE | 2017-11-03 03:58 | PD ---
HPI Chief Complaint: Fall Time Seen by Provider: 01:17 Travel History International Travel<30 days: No Contact w/Intl Traveler<30days: No Traveled to known affect area: No History of Present Illness HPI The patient is a 37 year old female who presents to the [facility] emergency department with a history of slipping and falling at work at approximately 11:30 PM tonight. The patient reports that she works at a [employer] place. She reports that she was walking in a narrow hallway that had fluid on the floor and she slipped. The patient reports that her feet came out from underneath her and she landed on her buttocks and then rolled onto her back. She denies having any head injury or loss of consciousness. She reports that she tried to catch herself with her left arm and now has left arm pain. The patient reports having left hand, left wrist, and left forearm pain. She denies having any numbness or tingling to her extremities. She denies having any weakness of her extremities. She reports that she does have pain in her back between her shoulder blades. She denies having any chest pain, chest pressure, or shortness of breath. On review of systems otherwise, she denies having any known recent fevers, cough or congestion, abdominal pain, vomiting, diarrhea, urinary symptoms, or other neurologic symptoms. LMP: One week ago [facility] Past Medical History Narrative Medical The patient's past medical history is significant for syncope. Diminished Hearing: No Neurologic: Yes (SYNCOPE) Immunizations Current: Yes Tetanus Vaccination: Unknown Influenza Vaccination: No ?: Not LMP: 10/21/2017 Tubal Ligation: Yes Past Surgical History Narrative Surgical The patient's past surgical history is significant for bilateral tubal ligation. Social History Alcohol Use: No Tobacco Use: Yes (2 CIGS A DAY) Substance Use: Yes (RECOVERY) Allergies-Medications (Allergen,Severity, Reaction): Coded Allergies: diatrizoate meglumine (Unverified Adverse Reaction, Severe, 11/03/17) gadobenic acid (Unverified Adverse Reaction, Severe, 11/03/17) gadodiamide (Unverified Adverse Reaction, Severe, 11/03/17) gadoteridol (Unverified Adverse Reaction, Severe, 11/03/17) iodine (Unverified Adverse Reaction, Severe, Hives, 11/03/17) iodixanol (Unverified Adverse Reaction, Severe, 11/03/17) iohexol (Unverified Adverse Reaction, Severe, 11/03/17) potassium iodide (Unverified Adverse Reaction, Severe, Hives, 11/03/17) povidone-iodine (Unverified Adverse Reaction, Severe, Hives, 11/03/17) sodium iodide (Unverified Adverse Reaction, Severe, Hives, 11/03/17) sodium iodide (Unverified Adverse Reaction, Severe, Hives, 11/03/17) Reported Meds & Prescriptions Reported Meds & Active Scripts Active Zantac (Ranitidine HCl) 150 Mg Tab 150 Mg PO BID Zofran Odt (Ondansetron Odt) 4 Mg Tab 4 Mg SL Q6HR PRN Review of Systems Except as stated in HPI: all other systems reviewed are Neg General / Constitutional: No: Fever Eyes: No: Visual changes HENT: No: Headaches, Neck Stiffness, Neck Pain Cardiovascular: No: Chest Pain or Discomfort Respiratory: No: Shortness of Breath Gastrointestinal: No: Abdominal Pain Genitourinary: No: Dysuria Musculoskeletal: Positive: Myalgias, Limited ROM, Pain Skin: No Rash Neurologic: No: Weakness, Focal Abnormalities, Change in Mentation, Slurred Speech, Sensory Disturbance Psychiatric: No: Depression Endocrine: No: Polydipsia Hematologic/Lymphatic: No: Easy Bruising Physical Exam Narrative General: The patient is a well-developed well-nourished female in no acute distress. Head and Neck exam: Head is normocephalic atraumatic. Eyes: EOMI, pupils are equal round and reactive to light. Nose: Midline septum with pink mucous membranes Mouth: Dentition unremarkable. Moist mucus membranes. Posterior oropharynx is not erythematous. No tonsillar hypertrophy. Uvula midline. Airway patent. Neck: No palpable lymphadenopathy. No nuchal rigidity. No thyromegaly. No spinous process tenderness to palpation. No step-off or crepitus. No erythema or ecchymosis. Cardiovascular: Regular rate and rhythm without murmurs, gallops, or rubs. Lungs: Clear to auscultation bilaterally. No wheezes, rhonchi, or rales. Abdomen: Soft, without tenderness to palpation in all 4 quadrants of the abdomen. No guarding, rebound, or rigidity. Normal bowel sounds are audible. No tenderness on palpation of McBurney's point. Negative Patton sign. Extremities: No clubbing, cyanosis, or edema. 2+ pulses in all 4 extremities. No calf tenderness on palpation. The area of interest is the left arm, the patient reports having tenderness on palpation along the center of the forearm dorsal aspect. There is no erythema or ecchymosis. There is no step-off or crepitus. She reports that the pain is worse with extension or flexion of her wrist or spreading her fingers. She does have full range of motion. Patient has tenderness on palpation in the snuffbox on the left side. Back: No spinous process tenderness to palpation. No step-off or crepitus. No erythema or ecchymosis. No costovertebral angle tenderness to palpation. Neurologic Exam: Cranial nerves 2-12 were intact on exam. Strength is 5/5 in all 4 extremities. No sensory deficits noted. Skin Exam: No rash noted. Intact skin that is warm and dry. Data Data Last Documented VS Vital Signs Date Time Temp Pulse Resp B/P (MAP) Pulse Ox O2 Delivery O2 Flow Rate FiO2 11/03/17 00:45 97.7 82 18 138/79 (98) 98 Orders Orders Forearm (2vws) (11/03/17 01:17) Hand, Limited (2vws) (11/03/17 01:17) Ice/Cold Pack (11/03/17 01:17) Chest, Pa & Lat (11/03/17 01:17) Splint Or Brace Apply/Monitor (11/03/17 03:01) Ibuprofen (Motrin) (11/03/17 03:15) MDM Medical Decision Making Medical Screen Exam Complete: Yes Emergency Medical Condition: Yes Medical Record Reviewed: Yes Interpretation(s) Last Impressions Radius/Ulna X-Ray 11/03/17116 Signed Impressions: Service Date/Time: Friday, November 03, 2017 01:30 - CONCLUSION: Unremarkable examination of the left forearm. Benji Chatman MD Hand X-Ray 11/03/17116 Signed Impressions: Service Date/Time: Friday, November 03, 2017 01:29 - CONCLUSION: Unremarkable limited examination of the left hand. Benji Chatman MD Chest X-Ray 11/03/17116 Signed Impressions: Service Date/Time: Friday, November 03, 2017 01:33 - CONCLUSION: No acute disease. Benji Chatman MD Differential Diagnosis Scaphoid fracture, versus distal radius and ulna fracture, versus tendinitis, versus musculoskeletal strain, versus contusion, versus rib fracture, versus pneumothorax Narrative Course During the course of the patient's emergency department visit, the patient's history, examination, and differential diagnosis were reviewed with the patient. The patient was placed on a cardiac care nurse with oximetry and frequent blood pressure monitoring. A chest x-ray PA and lateral were ordered, left forearm, left hand x-ray were ordered The patient was initially provided ibuprofen 400 mg p.o. 1. Radiology studies were reviewed and remarkable for chest x-ray PA and lateral that showed no acute abnormality. Hand x-ray on the left showed no acute abnormality. Radius and ulna x-ray on the left showed no acute abnormality. As the patient has pain in the snuffbox, an occult scaphoid fracture is possible. The patient will be placed in a thumb spica splint. The patient is instructed to follow-up with an orthopedic physician for reexamination in 1 week. The patient is resting comfortably and feels better, is alert and in no distress. The patient's results and examination findings were discussed with the patient. The repeat examination is unremarkable and benign. The history, exam, diagnostic testing, and current condition do not suggest any significant pathology to warrant further testing, continued ED treatment, admission, or surgical evaluation at this point. The vital signs have been stable. The patient does not have uncontrollable pain, intractable vomiting, or other significant symptoms. The patient's condition is stable and appropriate for discharge. The patient will pursue further outpatient evaluation with a primary care physician or other designated or consulting physician as indicated in the discharge instructions. The patient expressed understanding and was agreeable with this plan. Diagnosis Primary Impression: Wrist pain, acute Qualified Codes: M25.532 - Pain in left wrist Referrals: Rock Gary MD 1 week Patient Instructions: Arm Pain (ED), General Instructions Departure Forms: Work Release, Special Instructions: return to work when cleared by ortho Tests/Procedures Additional Instructions: As the patient has pain in the snuffbox, an occult scaphoid fracture is possible. The patient will be placed in a thumb spica splint. The patient is instructed to follow-up with an orthopedic physician for reexamination in 1 week. Med/Other Pt SpecificInfo: Prescription(s) given Scripts Cyclobenzaprine (Flexeril) 5 Mg Tab 5 MG PO TID Y for SPASM, #15 TAB 0 Refills Prov: Wendy Esteves MD 11/03/17 Ibuprofen (Ibuprofen) 400 Mg Tab 400 MG PO Q8H Y for PAIN SCALE 5 TO 10, #12 TAB 0 Refills Prov: Wendy Esteves MD 11/03/17 Disposition: 01 DISCHARGE HOME Condition: Stable Wendy Esteves MD Nov 03, 2017 03:58
== END 2017-11-03 04:06 | disposition home or self-care (01) ==
LOC: NEPE 00:38
DX: M25.532 Pain in left wrist (principal); M79.632 Pain in left forearm; M79.642 Pain in left hand; M54.6 Pain in thoracic spine; Z72.0 Tobacco use; Z86.69 Personal history of other diseases of the nervous system and sense organs; W01.0XXA Fall on same level from slipping, tripping and stumbling without subsequent striking against object, initial encounter; Y93.01 Activity, walking, marching and hiking; Y92.511 Restaurant or cafe as the place of occurrence of the external cause; Y99.0 Civilian activity done for income or pay
CPT/HCPCS: 71046; 73090; 73120; 99283; L3808